=== PATIENT | female | born 1985 | race Caucasian/White ===

== ENCOUNTER 2018-08-13 15:18 | Emergency (ER) | payer SELFPAY ==
[~2018-08-13] VITALS: Ht 160 cm; Wt 77.6 kg
[2018-08-13 15:34] VITALS: Ht 160 cm; Wt 77.6 kg
[2018-08-13 17:50] VITALS: BP 122/73
== END 2018-08-13 17:50 | disposition home or self-care (01) ==
LOC: ED 15:18
DX: S16.1XXA Strain of muscle, fascia and tendon at neck level, initial encounter (principal); S39.012A Strain of muscle, fascia and tendon of lower back, initial encounter; V49.9XXA Car occupant (driver) (passenger) injured in unspecified traffic accident, initial encounter; Y93.I9 Activity, other involving external motion; Y92.413 State road as the place of occurrence of the external cause; Y99.8 Other external cause status
CPT/HCPCS: J1885